=== PATIENT | female | born 1975 | race Caucasian/White ===

== ENCOUNTER 2022-05-12 07:56 | Day surgery (SDC) | payer BC ==
[2022-05-06 13:29] VITALS: BMI 23.5
[2022-05-12] MEDS ORDERED: PROPOFOL 40 ML ONE (09:03)
[2022-05-12 09:44] VITALS: RESP 18; TEMP 98
[2022-05-12 09:46] VITALS: BP 120/78; PULSE 80
== END 2022-05-12 10:10 | disposition home or self-care (01) ==
LOC: FASU-ENDO 07:56
PROVIDERS: ATTEND Internal Medicine Gastroenterology
PROC: 0DB98ZX Excision of Duodenum, Via Natural or Artificial Opening Endoscopic, Diagnostic (ICD-10-PCS; 2022-05-12)
PROC: 0DB78ZX Excision of Stomach, Pylorus, Via Natural or Artificial Opening Endoscopic, Diagnostic (ICD-10-PCS; 2022-05-12)
PROC: 0DJD8ZZ Inspection of Lower Intestinal Tract, Via Natural or Artificial Opening Endoscopic (ICD-10-PCS; principal; 2022-05-12 09:00)
DX: Z12.11 Encounter for screening for malignant neoplasm of colon (principal); K29.70 Gastritis, unspecified, without bleeding; Z80.0 Family history of malignant neoplasm of digestive organs; Z83.71 Family history of colonic polyps
CPT/HCPCS: 81025; 88305-TC; 88342-TC